=== PATIENT | male | born 1970 | race American Indian/Alaskan Native ===

== ENCOUNTER 2020-09-23 21:59 | Emergency (ER) | payer SELFPAY ==
[2020-09-23 22:29] VITALS: BP 179/96
== END 2020-09-23 23:02 | disposition home or self-care (01) ==
LOC: ED 21:59
DX: R52 Pain, unspecified (principal); Z53.21 Procedure and treatment not carried out due to patient leaving prior to being seen by health care provider

== ENCOUNTER 2021-08-24 21:36 | Emergency (ER) | payer SELFPAY ==
[2021-08-24 21:57] VITALS: BP 147/96
[2021-08-24] MEDS ORDERED: diphenhydrAMINE 50 MG/ML VIAL ONE (21:59)
[2021-08-24] MEDS ORDERED: methylPREDNISolone Sod Succinate 125 MG/2 ML INJ ONE (21:59)
[2021-08-24] MEDS ORDERED: FAMOTIDINE 20 MG/2 ML INJ IV ONE ×2 (21:59→22:04)
[2021-08-24] MEDS ORDERED: diphenhydrAMINE 50 MG/ML VIAL IV ONE (22:04)
[2021-08-24] MEDS ORDERED: methylPREDNISolone Sod Succinate 125 MG/2 ML INJ IV ONE (22:04)
--- NOTE | 2021-08-24 22:55 | Emergency Department Report ---
ED Allergic Reaction HPI - General Chief complaint: Allergic Reaction Stated complaint: ALLERGIC REACTION Source: patient Mode of arrival: Ambulatory Limitations: No Limitations - History of Present Illness Initial Comments: Patient is a 51-year-old -[place]an male with a history of gastric ulcers and hypertension who presented to the ED with complaint of acute onset pers istent diffuse itchy erythematous maculopapular rashes and nausea and vomiting after eating some foods about 1 hour ago. Patient states that he has also been feeling uncomfortable in his throat although he is still able to speak and swallow, lightheadedness and nausea and vomiting. Patient states that the itchy rashes have worsened in the last 30 minutes. Patient stated that he did not take any medications prior to arrival in the ED. Patient denies dizziness, syncope, chest pain, shortness of breath, abdominal pain, diarrhea, swollen lips or swollen tongue, dysphagia, dysphonia, fever, chills, swollen throat, swollen face or chest tightness and wheezing. MD Complaint: allergic reaction, hives, facial swelling, other (nausea and vomiting) -: Sudden, hour(s) (1) Exposure: food Symptoms: rash, itching, facial swelling, nausea, vomiting. denies: lip swelling, difficulty swallowing, difficulty breathing, hoarseness, syncopy, dizziness, abdominal pain Severity: moderate Treatment Prior to Arrival: none Previous Allergy History: none - Related Data Previous Rx's Medication Instructions Recorded Last Taken Type Azithromycin [Zithromax Z-MAKAYLA] 250 mg PO DAILY #6 tab 03/30/15 Unknown Rx HYDROcodone/APAP 5-325 [[place] 2 each PO Q6HR PRN #30 tablet 03/30/15 Unknown Rx 5/325] Docusate Sodium [Colace] 100 mg PO BID #60 capsule 08/27/15 Unknown Rx Famotidine [Pepcid] 20 mg PO BID #40 tablet 08/27/15 Unknown Rx Promethazine [Phenergan TAB] 25 mg PO Q6HR PRN #20 tab 08/27/15 Unknown Rx traMADoL [Ultram 50 MG tab] 50 mg PO Q6HR PRN #20 tablet 01/17/16 Unknown Rx Albuterol Mdi (or & Nicu Only) 1 puff IH Q4-6H PRN #1 inha 09/23/20 Unknown Rx [ProAir HFA Inhaler] Azithromycin [Zithromax] 500 mg PO QDAY #5 tablet 09/23/20 Unknown Rx Benzonatate [Tessalon Perles] 100 mg PO Q8HR #20 capsule 09/23/20 Unknown Rx Famotidine [Pepcid] 20 mg PO BID #60 tablet 08/24/21 Unknown Rx Ondansetron [Zofran Odt] 4 mg PO Q6HR PRN #15 tab.rapdis 08/24/21 Unknown Rx Prednisone [predniSONE 10 mg 10 mg PO .TAPER #1 08/24/21 Unknown Rx (6-Day Pack, 21 Tabs)] diphenhydrAMINE [Benadryl CAP] 50 mg PO Q8HR PRN #30 capsule 08/24/21 Unknown Rx Allergies Allergy/AdvReac Type Severity Reaction Status Date / Time No Known Allergies Allergy Verified 09/23/20 22:28 ED Review of Systems ROS: Stated complaint: ALLERGIC REACTION Other details as noted in HPI Constitutional: denies: chills, fever Eyes: denies: eye pain, eye discharge, vision change ENT: denies: ear pain, throat pain Respiratory: denies: cough, shortness of breath, wheezing Cardiovascular: denies: chest pain, palpitations Endocrine: no symptoms reported Gastrointestinal: nausea, vomiting. denies: abdominal pain, diarrhea Genitourinary: denies: urgency, dysuria Musculoskeletal: denies: back pain, joint swelling, arthralgia Skin: rash (Diffuse itchy erythematous maculopapular urticarial rashes), change in color, pruritus. denies: lesions Neurological: denies: headache, weakness, paresthesias Psychiatric: denies: anxiety, depression Hematological/Lymphatic: denies: easy bleeding, easy bruising ED Past Medical Hx - Past Medical History Previous Medical History?: Yes Hx Hypertension: Yes Additional medical history: HERNIA / ABD ULCERS - Surgical History Past Surgical History?: Yes Hx Appendectomy: Yes (2004) - Social History Smoking Status: Current Every Day Smoker Substance Use Type: Alcohol - Medications Home Medications: Home Medications Medication Instructions Recorded Confirmed Last Taken Type Azithromycin [Zithromax Z-MAKAYLA] 250 mg PO DAILY #6 tab 03/30/15 Unknown Rx HYDROcodone/APAP 5-325 [[place] 2 each PO Q6HR PRN #30 tablet 03/30/15 Unknown Rx 5/325] Docusate Sodium [Colace] 100 mg PO BID #60 capsule 08/27/15 Unknown Rx Famotidine [Pepcid] 20 mg PO BID #40 tablet 08/27/15 Unknown Rx Promethazine [Phenergan TAB] 25 mg PO Q6HR PRN #20 tab 08/27/15 Unknown Rx traMADoL [Ultram 50 MG tab] 50 mg PO Q6HR PRN #20 tablet 01/17/16 Unknown Rx Albuterol Mdi (or & Nicu Only) 1 puff IH Q4-6H PRN #1 inha 09/23/20 Unknown Rx [ProAir HFA Inhaler] Azithromycin [Zithromax] 500 mg PO QDAY #5 tablet 09/23/20 Unknown Rx Benzonatate [Tessalon Perles] 100 mg PO Q8HR #20 capsule 09/23/20 Unknown Rx Famotidine [Pepcid] 20 mg PO BID #60 tablet 08/24/21 Unknown Rx Ondansetron [Zofran Odt] 4 mg PO Q6HR PRN #15 tab.rapdis 08/24/21 Unknown Rx Prednisone [predniSONE 10 mg 10 mg PO .TAPER #1 08/24/21 Unknown Rx (6-Day Pack, 21 Tabs)] diphenhydrAMINE [Benadryl CAP] 50 mg PO Q8HR PRN #30 capsule 08/24/21 Unknown Rx ED Physical Exam - General Limitations: No Limitations General appearance: alert, in no apparent distress - Head Head exam: Present: atraumatic, normocephalic, normal inspection - Eye Eye exam: Present: normal appearance, PERRL, EOMI Pupils: Present: normal accommodation - ENT ENT exam: Present: normal exam, normal orophraynx, mucous membranes moist, TM's normal bilaterally, normal external ear exam - Neck Neck exam: Present: normal inspection, full ROM - Respiratory Respiratory exam: Present: normal lung sounds bilaterally. Absent: respiratory distress, wheezes, rhonchi, chest wall tenderness, accessory muscle use, decreased breath sounds, prolonged expiratory - Cardiovascular Cardiovascular Exam: Present: normal rhythm, tachycardia, normal heart sounds. Absent: systolic murmur, diastolic murmur, rubs, gallop - GI/Abdominal GI/Abdominal exam: Present: soft, normal bowel sounds. Absent: distended, tenderness, guarding, hyperactive bowel sounds, hypoactive bowel sounds - Extremities Exam Extremities exam: Present: normal inspection, full ROM, normal capillary refill. Absent: tenderness - Back Exam Back exam: Present: normal inspection, full ROM. Absent: tenderness, CVA tenderness (R), CVA tenderness (L), muscle spasm, paraspinal tenderness, vertebral tenderness - Neurological Exam Neurological exam: Present: alert, oriented X3, CN II-XII intact, normal gait, reflexes normal - Psychiatric Psychiatric exam: Present: normal affect, normal mood, anxious - Skin Skin exam: Present: warm, dry, intact, rash (Diffuse mildly erythematous maculopapular urticarial rashes), erythema, urticaria. Absent: normal color ED Course Vital Signs 08/24/21 08/24/21 21:54 23:26 Temperature 98.4 F Pulse Rate 114 H 90 Respiratory 18 20 Rate Blood Pressure 147/96 O2 Sat by Pulse 97 98 Oximetry ED Medical Decision Making - Medical Decision Making This is a 51-year-old -[place] male with a history of gastric ulcers and hypertension who presented to the ED with complaint of acute onset persistent diffuse itchy erythematous maculopapular rashes and nausea and vomiting after eating some foods about 1 hour ago. Patient states that he has also been feeling uncomfortable in his throat although he is still able to speak and swallow, lightheadedness and nausea and vomiting. Patient states that the itchy rashes have worsened in the last 30 minutes. Patient stated that he did not take any medications prior to arrival in the ED. in the ED, patient is alert and oriented x3 and is not in any distress but anxious and tachycardic in triage. Patient was treated for acute allergic reaction and observed in the ED. On reevaluation, patient's itching, nausea and vomiting as well as rash has resolved. Patient's tachycardia also resolved prior to being discharged home. Patient was therefore discharged home on medications and advised to follow-up with his primary care physician in 3 to 5 days for reevaluation. Patient was advised return to the ED immediately if symptoms get worse. - Differential Diagnosis Urticaria; allergic reaction; itching with irritation; anaphylaxis; Critical care attestation.: If time is entered above; I have spent that time in minutes in the direct care of this critically ill patient, excluding procedure time. ED Disposition Clinical Impression: Acute urticaria, Itching with irritation, Nausea and vomiting in adult patient Acute allergic reaction Qualifiers: Encounter type: initial encounter Qualified Code(s): T78.40XA - Allergy, unspecified, initial encounter Disposition: 01 HOME / SELF CARE / HOMELESS Is pt being admited?: No Does the pt Need Aspirin: No Condition: Stable Instructions: Allergies, Adult, Vzqx-to-Vaih, Nausea and Vomiting, Adult, Flci-yw-Nddl, Hives, Cinr-ov-Xtbu, Rash, Adult, Zjzc-xs-Gcvi Additional Instructions: Take medication with food, drink plenty of fluids and follow-up with your [facility] physician in 7 to 10 days for reevaluation. Return to the ED immediately if symptoms get worse Prescriptions: diphenhydrAMINE [Benadryl CAP] 50 mg PO Q8HR PRN #30 capsule PRN Reason: Itching Famotidine [Pepcid] 20 mg PO BID #60 tablet Prednisone [predniSONE 10 mg (6-Day Pack, 21 Tabs)] 10 mg PO .TAPER #1 Ondansetron [Zofran Odt] 4 mg PO Q6HR PRN #15 tab.rapdis PRN Reason: Nausea Referrals: [facility] [Provider Group] - 3-5 Days Forms: Work/School Release Form(ED) Time of Disposition: 22:53 Print Language: LAO
== END 2021-08-24 23:26 | disposition home or self-care (01) ==
LOC: ED 21:36
DX: T78.40XA Allergy, unspecified, initial encounter (principal); R11.2 Nausea with vomiting, unspecified; L50.9 Urticaria, unspecified; L29.9 Pruritus, unspecified; X58.XXXA Exposure to other specified factors, initial encounter; I10 Essential (primary) hypertension; F17.200 Nicotine dependence, unspecified, uncomplicated
CPT/HCPCS: 96374; 96375; 99282; J1200; J2930; J3490

== ENCOUNTER 2021-08-26 21:57 | Emergency (ER) | payer SELFPAY ==
[2021-08-26 23:26] VITALS: BP 169/95
[2021-08-27 01:30] LABS: Basophils % (Auto) 0.6 % (0.0-1.8); Eosinophils # (Auto) 0.1 K/mm3 (0.0-0.4); Eosinophils % (Auto) 2.1 % (0.0-4.3); Hematocrit 40.7 % (35.5-45.6); Hemoglobin 13.4 gm/dl (11.8-15.2); Lymphocytes # (Auto) 3.3 K/mm3 (1.2-5.4); Lymphocytes % (Auto) 52.3 % (13.4-35.0); Mean Corpuscular HGB Conc 33 % (32-34); Mean Corpuscular Volume 92 fl (84-94); Monocytes # (Auto) 0.5 K/mm3 (0.0-0.8); Monocytes % (Auto) 7.5 % (0.0-7.3); Platelet Count 221 K/mm3 (140-440); Red Blood Count 4.44 M/mm3 (3.65-5.03); Red Cell Distribution Width 13.4 % (13.2-15.2)
--- NOTE | 2021-08-27 02:03 | Emergency Department Report ---
ED General Adult HPI - General Chief complaint: Dizziness Stated complaint: CHEST PAIN/HIGH BP/DIZZINESS Time Seen by Provider: 08/27/21 00:53 Source: patient Mode of arrival: Ambulatory Limitations: No Limitations - History of Present Illness Initial comments: 51-year-old -[place] male patient presents with complaints of dizziness today. He describes the dizziness as lightheadedness and denies any head injury, headache, numbness/tingling/weakness in his limbs, difficulty with speech/ambulation, confusion, or memory loss. He admits to having significant blurry vision bilaterally that lasted a few minutes when his dizziness first started, but denies any current vision changes. Patient states the dizziness triggered him to get checked at a local pharmacy and it was noted to be elevated at 176/111. He denies any history of strokes or blood thinner use. Patient states the dizziness mainly occurs when getting up from a seated position. - Related Data Previous Rx's Medication Instructions Recorded Last Taken Type Azithromycin [Zithromax Z-MAKAYLA] 250 mg PO DAILY #6 tab 03/30/15 Unknown Rx HYDROcodone/APAP 5-325 [[place] 2 each PO Q6HR PRN #30 tablet 03/30/15 Unknown Rx 5/325] Docusate Sodium [Colace] 100 mg PO BID #60 capsule 08/27/15 Unknown Rx Famotidine [Pepcid] 20 mg PO BID #40 tablet 08/27/15 Unknown Rx Promethazine [Phenergan TAB] 25 mg PO Q6HR PRN #20 tab 08/27/15 Unknown Rx traMADoL [Ultram 50 MG tab] 50 mg PO Q6HR PRN #20 tablet 01/17/16 Unknown Rx Albuterol Mdi (or & Nicu Only) 1 puff IH Q4-6H PRN #1 inha 09/23/20 Unknown Rx [ProAir HFA Inhaler] Azithromycin [Zithromax] 500 mg PO QDAY #5 tablet 09/23/20 Unknown Rx Benzonatate [Tessalon Perles] 100 mg PO Q8HR #20 capsule 09/23/20 Unknown Rx Famotidine [Pepcid] 20 mg PO BID #60 tablet 08/24/21 Unknown Rx Ondansetron [Zofran Odt] 4 mg PO Q6HR PRN #15 tab.rapdis 08/24/21 Unknown Rx Prednisone [predniSONE 10 mg 10 mg PO .TAPER #1 08/24/21 Unknown Rx (6-Day Pack, 21 Tabs)] diphenhydrAMINE [Benadryl CAP] 50 mg PO Q8HR PRN #30 capsule 08/24/21 Unknown Rx Allergies Allergy/AdvReac Type Severity Reaction Status Date / Time No Known Allergies Allergy Verified 08/26/21 23:26 ED Review of Systems ROS: Stated complaint: CHEST PAIN/HIGH BP/DIZZINESS Other details as noted in HPI Constitutional: denies: chills, fever, malaise Respiratory: denies: cough, shortness of breath Cardiovascular: denies: chest pain Gastrointestinal: denies: abdominal pain, nausea, vomiting Genitourinary: denies: urgency, dysuria, frequency Musculoskeletal: denies: arthralgia Skin: denies: change in color Neurological: denies: headache, numbness, paresthesias, confusion, abnormal gait Hematological/Lymphatic: denies: easy bleeding, easy bruising ED Past Medical Hx - Past Medical History Hx Hypertension: Yes Additional medical history: HERNIA / ABD ULCERS - Surgical History Hx Appendectomy: Yes (2004) - Social History Smoking Status: Current Every Day Smoker Substance Use Type: Alcohol - Medications Home Medications: Home Medications Medication Instructions Recorded Confirmed Last Taken Type Azithromycin [Zithromax Z-MAKAYLA] 250 mg PO DAILY #6 tab 03/30/15 Unknown Rx HYDROcodone/APAP 5-325 [[place] 2 each PO Q6HR PRN #30 tablet 03/30/15 Unknown Rx 5/325] Docusate Sodium [Colace] 100 mg PO BID #60 capsule 08/27/15 Unknown Rx Famotidine [Pepcid] 20 mg PO BID #40 tablet 08/27/15 Unknown Rx Promethazine [Phenergan TAB] 25 mg PO Q6HR PRN #20 tab 08/27/15 Unknown Rx traMADoL [Ultram 50 MG tab] 50 mg PO Q6HR PRN #20 tablet 01/17/16 Unknown Rx Albuterol Mdi (or & Nicu Only) 1 puff IH Q4-6H PRN #1 inha 09/23/20 Unknown Rx [ProAir HFA Inhaler] Azithromycin [Zithromax] 500 mg PO QDAY #5 tablet 09/23/20 Unknown Rx Benzonatate [Tessalon Perles] 100 mg PO Q8HR #20 capsule 09/23/20 Unknown Rx Famotidine [Pepcid] 20 mg PO BID #60 tablet 08/24/21 Unknown Rx Ondansetron [Zofran Odt] 4 mg PO Q6HR PRN #15 tab.rapdis 08/24/21 Unknown Rx Prednisone [predniSONE 10 mg 10 mg PO .TAPER #1 08/24/21 Unknown Rx (6-Day Pack, 21 Tabs)] diphenhydrAMINE [Benadryl CAP] 50 mg PO Q8HR PRN #30 capsule 08/24/21 Unknown Rx ED Physical Exam - General Limitations: No Limitations General appearance: alert, in no apparent distress - Eye Eye exam: Present: normal appearance, PERRL, EOMI. Absent: scleral icterus - ENT ENT exam: Present: mucous membranes moist - Neck Neck exam: Present: normal inspection, full ROM - Respiratory Respiratory exam: Present: normal lung sounds bilaterally. Absent: respiratory distress - Cardiovascular Cardiovascular Exam: Present: regular rate, normal rhythm. Absent: systolic murmur, diastolic murmur, rubs, gallop - Neurological Exam Neurological exam: Present: alert, oriented X3, CN II-XII intact, normal gait. Absent: motor sensory deficit - Expanded Neurological Exam Expanded Cerebellar function: Finger to Nose: Normal, Heel to [place]: Normal, [place]: Normal Sensory exam: Upper Extremity Light Touch: Normal, Lower Extremity Light Touch: Normal Motor strength exam: RUE: 4, LUE: 4, RLE: 4, LLE: 4 Best Eye Response ([place]): (4) open spontaneously Best Motor Response ([place]): (6) obeys commands Best Verbal Response ([place]): (5) oriented Kelly Total: 15 - Psychiatric Psychiatric exam: Present: normal affect, normal mood - Skin Skin exam: Present: warm, dry, intact, normal color. Absent: rash ED Course Vital Signs 08/26/21 23:22 Temperature 98.6 F Pulse Rate 71 Respiratory 18 Rate Blood Pressure 169/95 O2 Sat by Pulse 99 Oximetry ED Medical Decision Making - Lab Data Result diagrams: 08/27/21 01:04 08/27/21 01:04 Lab Results 08/27/21 08/27/21 Range/Units 01:04 01:04 WBC 6.3 (4.5-11.0) K/mm3 RBC 4.44 (3.65-5.03) M/mm3 Hgb 13.4 (11.8-15.2) gm/dl Hct 40.7 (35.5-45.6) % MCV 92 (84-94) fl MCH 30 (28-32) pg MCHC 33 (32-34) % RDW 13.4 (13.2-15.2) % Plt Count 221 (140-440) K/mm3 Lymph % (Auto) 52.3 H (13.4-35.0) % [place] % (Auto) 7.5 H (0.0-7.3) % Eos % (Auto) 2.1 (0.0-4.3) % Baso % (Auto) 0.6 (0.0-1.8) % Lymph # (Auto) 3.3 (1.2-5.4) K/mm3 [place] # (Auto) 0.5 (0.0-0.8) K/mm3 Eos # (Auto) 0.1 (0.0-0.4) K/mm3 Baso # (Auto) 0.0 (0.0-0.1) K/mm3 Seg Neutrophils % 37.5 L (40.0-70.0) % Seg Neutrophils # 2.4 (1.8-7.7) K/mm3 Sodium 141 (137-145) mmol/L Potassium 4.0 (3.6-5.0) mmol/L Chloride 101.4 (98-107) mmol/L Carbon Dioxide 29 (22-30) mmol/L Anion Gap 15 mmol/L BUN 17 (9-20) mg/dL Creatinine 0.9 (0.8-1.3) mg/dL Estimated GFR > 60 ml/min BUN/Creatinine Ratio 19 % Glucose 94 (75-100) mg/dL Calcium 9.4 (8.4-10.2) mg/dL Total Bilirubin 0.40 (0.1-1.2) mg/dL AST 19 (5-40) units/L ALT 18 (7-56) units/L Alkaline Phosphatase 54 (35-129) units/L Troponin T < 0.010 (0.00-0.029) ng/mL Total Protein 7.2 (6.3-8.2) g/dL Albumin 4.1 (3.9-5) g/dL Albumin/Globulin Ratio 1.3 % - EKG Data EKG shows normal: sinus rhythm Rate: normal - EKG Data Interpretation: normal EKG - Medical Decision Making 51-year-old -Bul[place] male patient presents with complaints of dizziness today. He describes the dizziness as lightheadedness and denies any head injury, headache, numbness/tingling/weakness in his limbs, difficulty with speech/ambulation, confusion, or memory loss. He admits to having significant blurry vision bilaterally that lasted a few minutes when his dizziness first started, but denies any current vision changes. Patient states the dizziness triggered him to get checked at a local pharmacy and it was noted to be elevated at 176/111. He denies any history of strokes or blood thinner use. Patient sta arslan the dizziness mainly occurs when, I do suspect orthostatic hypotension. Recommend increase water intake. Patient to follow-up with primary care within 3 days. He is otherwise well-appearing, his vitals are within normal limits, he is stable for discharge home. Discussed in detail signs and symptoms that should prompt immediate return to the emergency department with patient who verbalized understanding. No acute abnormalities noted on labs, EKG, or CT head. Orthostatic vitals are normal, however given patient's dizziness mainly with getting up from a seated position, symptoms may be due to orthostatic hypotension. Patient given 1 L normal saline. He states his dizziness has improved. He is otherwise well- appearing, his neuro exam is normal, he is stable for discharge. Recommend increase water intake and follow-up with primary care within 2 to 3 days. Discussed in detail signs and symptoms that should prompt immediate return to the emergency department with patient verbalized understanding Critical care attestation.: If time is entered above; I have spent that time in minutes in the direct care of this critically ill patient, excluding procedure time. ED Disposition Clinical Impression: Dizziness Disposition: 01 HOME / SELF CARE / HOMELESS Is pt being admited?: No Condition: Stable Instructions: Hypotension, Xvkw-[id number]-[id number], Dizziness, [id number]-Djfa Referrals: PRIMARY CARE, [Primary Care Provider] - 3-5 Days [facility] [Provider Group] - 3-5 Days
[2021-08-27 02:06] LABS: Alanine Aminotransferase 18 units/L (7-56); Albumin 4.1 g/dL (3.9-5); BUN/Creatinine Ratio 19; Blood Urea Nitrogen 17 mg/dL (9-20); Calcium 9.4 mg/dL (8.4-10.2); Hemolysis Index 9
[2021-08-27] MEDS ORDERED: SODIUM CHLORIDE 0.9% 1000 ML 1,000 ML IV ONE (03:28)
--- NOTE | 2021-08-27 03:38 | Cat Scan Report ---
. CT HEAD WITHOUT CONTRAST INDICATION / CLINICAL INFORMATION: Pt complains of dizziness. TECHNIQUE: All CT scans at this location are performed using CT dose reduction for ALARA by means of automated e xposure control. COMPARISON: None available. FINDINGS: No acute cranial hemorrhage. Ventricles normal in size without midline shift or mass effect. No extra axial fluid collection is seen thompson-white matter differentiation appears normal. Minimal sinus disea se ADDITIONAL FINDINGS: None. IMPRESSION: 1. No acute intracranial abnormality. Signer Name: Faustino Santoyo MD Signed: 08/27/2021 3:34 AM Workstation Name: [id number]
--- NOTE | 2021-08-27 09:00 | Electrocardiograph Report ---
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
== END 2021-08-27 04:00 | disposition home or self-care (01) ==
LOC: ED 21:57
DX: R42 Dizziness and giddiness (principal); F17.200 Nicotine dependence, unspecified, uncomplicated; I10 Essential (primary) hypertension
CPT/HCPCS: 36415; 70450; 80053; 84484; 85025; 93005; 93010; 96360; 99284; J7030; Q0162